=== PATIENT | female | born 1990 | race Caucasian/White ===

== ENCOUNTER → 2022-02-15 | Day surgery (SDC) | payer BC ==
[~2022-02-15] MED LIST: COLACE 100MG C100 MG PO; HYDROCODON-ACE1 EAC4 PO; IBUPROFEN600 MG PO; IBUPROFEN800 MG PO; LORTAB 5-325 M1 EACH PO; PRENATAL VITAM1 EAC8 PO
[2022-02-15 06:50] LABS: HEMOGLOBIN 15.5 gm/dl (12.3-15.3); RED BLOOD COUNT 5.03 M/UL (4.00-5.10)
== END | disposition home or self-care (01) ==
LOC: OR 06:02
PROVIDERS: Obstetrics & Gynecology
DX: O02.1 Missed abortion (principal)
CPT/HCPCS: 81001; 85025; J1100; J1885; J2001; J2250; J2405; J2704; J2795; J3010; J7030